=== PATIENT | male | born 1965 | race Caucasian/White ===

== ENCOUNTER 2018-08-24 23:12 | Observation (INO) ==
--- NOTE | 2018-08-24 23:27 | Emergency Department Note ---
Disposition Clinical Impression: Pre-syncope, Bradycardia Disposition: Admitted As Inpatient Time of Disposition: 00:52 General Adult HPI - General Stated complaint: Cardiac issues Time Seen by Provider: 08/24/18 23:22 Source: patient, EMS Mode of arrival: EMS Limitations: no limitations Nursing Notes Reviewed: Yes Vital Signs Reviewed: Yes - History of Present Illness HPI Narrative: 53 yo male with past medical history of diabetes and coronary artery disease with CABG performed [address] Simons presents to the emergency [facility] with a complaint of lightheadedness when he stands and moves around. Patient states that this has been going on since he woke up this morning. He denies any chest pain, shortness of breath, abdominal pain. He states when he first noticed it this morning he did get nauseous and sweaty but did not throw up. He states he had similar symptoms to this when he had his first heart attack many years ago but this episode was not as severe as the first one he has had. He has no symptoms while at rest. His legs have remained swollen since surgery 2 weeks ago and he has not been taking any diuretics or anything else to help decrease the leg swelling. He denies a history of COPD but states he was getting breathing treatments every 4 hours while in the hospital supposed be discharged with inhalers but was not. He states he has been compliant with his medication status post bypass. He is not started cardiac rehabilitation yet. Per EMS the patient's blood sugar was 180. His blood pressures were positive for orthostatic hypotension. His heart rate was borderline slow for EMS in the low 60s and high 50s. - Related Data Home Medications Medication Instructions Recorded Confirmed Aspirin [Lo-Dose Aspirin EC] 81 mg PO DAILY 07/31/18 07/31/18 Atorvastatin Calcium [Lipitor] 80 mg PO DAILY 07/31/18 07/31/18 Carvedilol 3.125 mg PO BID 07/31/18 07/31/18 Cetirizine HCl [24Hour Allergy] 10 mg PO DAILY 07/31/18 07/31/18 Duloxetine HCl [Cymbalta] 60 mg PO DAILY 07/31/18 07/31/18 Famotidine [Pepcid] 40 mg PO DAILY 07/31/18 07/31/18 Metformin HCl [Fortamet] 1,000 mg PO BID 07/31/18 07/31/18 Pioglitazone [Actos] 15 mg PO DAILY 07/31/18 07/31/18 Suboxone 8 mg-2 mg Sl Film 8.2 mg PO BID 07/31/18 07/31/18 Previous Rx's Medication Instructions Recorded Amiodarone [Cordarone] 200 mg PO DAILY tablet 08/10/18 Allergies Allergy/AdvReac Type Severity Reaction Status Date / Time No Known Allergies Allergy Verified 07/31/18 19:19 All systems ED: reviewed and negative except as stated. Review of Systems: As Per HPI Constitutional: Denies: fever, chills, weakness Cardiovascular: Denies: chest pain, palpitations, dyspnea on exertion, edema Respiratory: Denies: cough, dyspnea, wheezes, sputum production Gastrointestinal: Denies: abdominal pain, nausea, vomiting Musculoskeletal: Denies: back pain, neck pain Integumentary: Denies: rash Neurological: Reports: other (lightheadedness/presyncope with exertion). Denies: headache Endocrine: Denies: fatigue Past Medical History - Past Medical History Attestation: Yes The following information was validated with the patient. Source: patient Medical history: Reports: diabetes, hyperlipidemia, hypertension, myocardial infarction Surgical history: Reports: no surgical history, other Psychiatric history: Reports: no psych history - Social History Smoking Status: Former smoker Smokeless Tobacco Status: No Alcohol use: Reports: occasionally Drug use: Reports: none Physical Exam - General Limitations: no limitations General appearance: alert, in no apparent distress - Head Head exam: atraumatic, normocephalic - Eye Eye exam: Present: normal appearance, EOMI - ENT ENT exam: normal exam, mucous membranes moist - Neck Neck exam: Present: normal inspection. Absent: tenderness, lymphadenopathy - Chest Chest inspection: Present: normal inspection. Absent: tenderness, rash - Respiratory Respiratory exam: Present: normal lung sounds bilaterally. Absent: wheezes - Cardiovascular Cardiovascular exam: Present: normal rhythm, bradycardia - Abdominal Exam Abdominal exam: Present: soft, Non-Tender. Absent: distention, guarding, rebound, rigidity - Extremities Exam Extremities exam: Present: pedal edema (1+ pitting edema to bilateral lower extermities without tenderness). Absent: tenderness - Neurological Exam Neurological exam: Present: alert, oriented X3 - Psychiatric Psychiatric exam: Present: normal affect, normal mood - Skin Skin exam: Present: warm, dry, intact Course Vital Signs Temperature 98.1 F 08/24/18 23:39 Pulse Rate 47 08/24/18 23:39 Respiratory Rate 13 08/24/18 23:39 Blood Pressure 97/59 08/24/18 23:39 O2 Sat by Pulse Oximetry 95 08/24/18 23:39 Temperature 98.1 F 08/24/18 23:39 Pulse Rate 47 08/24/18 23:39 Respiratory Rate 13 08/24/18 23:39 Blood Pressure 97/59 08/24/18 23:39 O2 Sat by Pulse Oximetry 95 08/24/18 23:39 Oxygen Delivery Oxygen Delivery Room Air Medical Decision Making - MDM Narrative Medical decision making narrative: Patient presents with dizziness/presyncope with exertion that started this morning. Patient will undergo a cardiac evaluation with EKG, troponin, BNP, basic labs, 2 view chest x-ray. Patient will also receive a liter of fluids. 0033 - patient's lab work is at his baseline. Magnesium was slightly low at 1.5 and we will replace this. EKG does not demonstrate any acute abnormalities. Chest x-ray shows right-sided pleural effusion without any evidence of acute fluid overload or pneumonia. Patient is still feeling lightheaded with exertion and is bradycardic. We will admit the patient for further management of his presyncope and reevaluation by his cardiothoracic surgeon. 0050 - patient has been accepted by the hospitalist at this time. Patient's blood pressures improved to 135/70. His heart rate bounces between 45 and 80 bpm. Cardiothoracic surgery will be consulted in the morning. - Medical Records Medical records reviewed: Yes I reviewed the patient's medical records. - Lab Data Lab results reviewed: Yes I reviewed the patient's lab results. Result diagrams: 08/24/18 23:40 08/24/18 23:40 Lab Results 08/24/18 08/24/18 08/24/18 Range/Units 23:40 23:40 23:40 WBC 5.7 (4.3-11.1) K/mcL RBC 3.52 L (4.19-5.50) M/mcL Hgb 9.2 L (12.9-16.9) g/dL Hct 29.8 L (37.5-50.1) % MCV 84.7 (83.0-100.0) fL MCH 26.1 L (28.0-33.3) pg MCHC 30.9 L (31.6-35.5) g/dL RDW 13.8 (11.5-14.5) % Plt Count 292 (140-400) K/mcL MPV 9.1 L (9.4-12.4) fL Immature Gran % 0.4 (0-4) % Seg Neutrophils % 51.0 % Lymphocytes % 33.6 % Monocytes % 11.2 % Eosinophils % 3.3 % Basophils % 0.5 % Neutrophils # 2.9 (1.6-8.9) K/mcL Lymphocytes # 1.9 (0.6-4.6) K/mcL Monocytes # 0.6 (0.0-1.3) K/mcL Eosinophils # 0.2 (0.0-0.6) K/mcL Basophils # 0.0 (0.0-0.2) K/mcL Sodium 136 (136-145) mEq/L Potassium 4.9 (3.5-5.1) mEq/L Chloride 101 (98-107) mEq/L Carbon Dioxide 26 (23-29) mEq/L BUN 29 H (6-20) mg/dL Creatinine 1.33 H (0.70-1.30) mg/dL Est GFR ( Amer) > 60 (> 60) Est GFR (Non-Af Amer) 56 L (> 60) BUN/Creatinine Ratio 22 (6-26) Glucose 222 H (70-105) mg/dL Calculated Osmolality 295 (280-300) Calcium 8.9 (8.6-10.3) mg/dL Magnesium 1.5 L (1.6-2.6) mg/dL Troponin I 0.03 (< 0.04) ng/mL B-Natriuretic Peptide 503 H (Less than 100) pg/mL - Radiology Data Radiology results reviewed: Yes I reviewed the patient's radiology results. - EKG Data EKG #1 EKG attestation: Yes I reviewed and interpreted this EKG. EKG results narrative: EKG obtained at 23:21 on 08/24/2018 Heart rate 47 bpm, MN interval 96, QRS duration 104, QTC 435, QTc [address] segment elevations or depressions. U waves are visible in lead V2, 3, aVF. No other notable abnormalities and EKG and. Previous EKG obtained 08/08/2018 shows atrial flutter. Attestation Statement - Attestation Attestation: I have seen this patient with the resident physician, I have personally evaluated this patient. I had reviewed the chart and document dictation by the resident physician and aM in agreement with the information documented by the resident physician. Please see documentation by the resident physician for complete chart including past medical history, family medical history, review of systems, current history and physical and laboratory and imaging studies. I was present for all procedures, provided direct supervision for all procedures, was present for the entirety of all procedures and provided direct guidance during the procedures. Please see documentation by the resident physician for any procedures performed. I have reviewed all interpretations of EKGs, and reviewed all EKGs performed on patient's as well. I have also reviewed reports of imaging as provided by radiology. Patient presented emergency Department chief complaint of lightheadedness especially with standing. He was recently discharged from hospital after bypass. Upon presentation initial EKG was a sinus bradycardia, no evidence of block, no evidence of acute ST elevation or ST depression, there did appear to be potentially some U waves. No evidence of prolonged QT no evidence of MN prolongation no evidence of QRS widening no significant acute abnormality apart from sinus bradycardia. The patient is on carvedilol. He reports taking all medications as directed. Chest x-ray showed some cardiomegaly left lower lobe pleural effusion, no significant change from recent. Basic laboratory studies including CBC basic metabolic profile within acceptable limits, troponin negative, magnesium slightly low at 1.5 which is supplemented here in the ER. A BNP of 500. Patient had initial blood pressure of 90s systolic, rapidly improved with a liter fluids 230. Patient during his stay had rate changes noted fairly frequently, ranging between 45 and 81, multiple EKGs were obtained, which demonstrated just sinus rhythm, sometimes with a rate in the 80s sometimes with a rate in the 40s, no changes in symptoms at this time and the patient states that he felt significant better after 1 L of IV fluids and had no symptoms at rest, with these fluctuations in heart rate, this could be credit resolution representative of sick sinus syndrome versus sinus arrhythmia and sinus bradycardia, but no evidence of block and no evidence of dropped beats. Patient was admitted to the hospital for further evaluation and management.
[2018-08-24] MEDS ORDERED: 0.9 % Sodium Chloride 1,000 ML IVC ONE (23:44)
[2018-08-24 23:59] LABS: Basophils % 0.5 %; Eosinophils # 0.2 K/mcL (0.0-0.6); Eosinophils % 3.3 %; Hematocrit 29.8 % (37.5-50.1); Hemoglobin 9.2 g/dL (12.9-16.9); Immature Granulocytes % 0.4 % (0-4); Lymphocytes # 1.9 K/mcL (0.6-4.6); Lymphocytes % 33.6 %; Mean Corpuscular HGB Conc 30.9 g/dL (31.6-35.5); Mean Corpuscular Hemoglobin 26.1 pg (28.0-33.3); Mean Corpuscular Volume 84.7 fL (83.0-100.0); Mean Platelet Volume 9.1 fL (9.4-12.4); Monocytes # 0.6 K/mcL (0.0-1.3); Monocytes % 11.2 %; Neutrophils # 2.9 K/mcL (1.6-8.9); Platelet Count 292 K/mcL (140-400); Red Blood Count 3.52 M/mcL (4.19-5.50); Red Cell Distribution Width 13.8 % (11.5-14.5); White Blood Count 5.7 K/mcL (4.3-11.1)
[2018-08-25 00:15] LABS: BUN/Creatinine Ratio 22 (6-26); Blood Urea Nitrogen 29 mg/dL (6-20); Calcium 8.9 mg/dL (8.6-10.3); Carbon Dioxide 26 mEq/L (23-29); Chloride 101 mEq/L (98-107); Glucose 222 mg/dL (70-105); Magnesium 1.5 mg/dL (1.6-2.6); Osmolality,Calculated 295 (280-300); Potassium 4.9 mEq/L (3.5-5.1); Sodium 136 mEq/L (136-145); Troponin I 0.03 ng/mL (< 0.04); eGFR For African Americans > 60 (> 60); eGFR For Non-African Americans 56 (> 60)
--- NOTE | 2018-08-25 01:46 | Internal Med History&Physical ---
<Walter Mendes A - Last Filed: 08/25/18 06:23> Date of Encounter: 08/25/18 Time of Encounter: 01:46 Internal Medicine - H&P: HPI Chief complaint: Lightheadedness Admitted From: Emergency Dept History of present illness: Mr. Bettencourt is a 53 year old male with past medical history of coronary artery disease, and status post CABG from 3 weeks ago. He initially presented to the ER complaining of lightheadedness when standing and moving around. Patient states this is been going on for approximately one day. Denied any chest pain, shortness of breath, abdominal pain, nausea, vomiting, fever, numbness, tingling, or headaches. Reports he has been at his baseline shortness of breath, with no change in sputum production or sputum character. He reports his lower extremity edema remains grossly unchanged since discharge from this facility 2 weeks ago. Workup in the ED revealed sinus bradycardia with heart rate in the 40s. Chest x-ray showed pulmonary vascular congestion with small left pleural effusion. Initial troponin negative. BNP slightly elevated at 503. Magnesium was found to be slightly decreased at 1.5, but was repleted with 2 g IV. Patient was also given 1 L IV fluids. During the encounter with this provider patient reported he feels better after receiving the IV fluids and IV magnesium. Patient's and 2 daughters are bedside. Patient's does report the patient has had one more episode of lightheadedness since arriving to the floor, however this is resolved at this time. Patient continues to deny any chest pain or shortness of breath. The patient and his report compliance with home medications. Patient reports he has had adequate by mouth intake, with no difficulties urinating or d ifficulties with bowel movements. Patient reports he does wish to be a full code at this time, and is amenable to CVC placement should his hypotension persist. Home medications include: Aspirin 81 mg daily NovoLog injectable Pioglitazone 15 mg daily Amiodarone 200 mg daily Atorvastatin 80 mg daily Carvedilol 3.125 mg twice a day Duloxetine 60 mg daily Famotidine 40 mg daily Metformin 1000 mg twice a day As needed DuoNeb's Past Med Surg Social Fam HX - Past Medical History Medical history: coronary artery disease, diabetes, hyperlipidemia, hypertension, myocardial infarction Psychiatric history: no psych history - Past Surgical History Surgical History: no surgical history, other Additional surgical history: cardiac stent x1 (2010). CABG on 08/09 - Social History Smoking Status: Former smoker Smokeless Tobacco Status: No Alcohol use: occasionally Drug use: none Internal Medicine - H&P: Meds No Known Home Drugs 08/25/18 [History] Allergy/AdvReac Type Severity Reaction Status Date / Time No Known Allergies Allergy Verified 07/31/18 19:19 All Systems PM: A 10-system review of systems was performed and is negative for pertinent findings except as documented above in the HPI. - Constitutional Constitutional: no chills, no fever(s) - EENT Eyes: no blurry vision, no change in vision - Cardiovascular Cardiovascular ROS IM: edema (Baseline), lightheadedness, no chest pain, no diaphoresis, no dyspnea, no orthopnea, no palpitations, no syncope - Respiratory Respiratory: no cough, no dyspnea, no excessive phlegm production, no change in phlegm color - Gastrointestinal Gastrointestinal: no abdominal pain, no change in bowel habits - Genitourinary Genitourinary ROS male: no difficulty urinating, no hematuria - Integumentary Integumentary IM: no erythema, no new lesions, no rash, no unusual bruising - Hematologic/Lymphatic Hematologic/Lymphatic: no easy bleeding, no easy bruising - Constitutional Vitals: Temp Pulse Resp BP Pulse Ox 98.3 F 44 15 80/48 92 08/25/18 01:44 08/25/18 01:44 08/25/18 01:44 08/25/18 01:44 08/25/18 01:44 General appearance: Present: A&O X 3, pleasant, no acute distress, answers questions appropriately Exam: Constitutional: Well-nourished, well-developed male in no acute distress Head: Normocephalic, atraumatic Eyes: PERRL, EOMI, conjunctiva pink, sclera anicteric Neck: Supple, trachea midline, no tenderness Lungs: Clear to auscultation bilaterally. Nonlabored breathing. No wheezes, rales, or rhonchi noted. Cardiac: RRR. +s1 +S2 No murmurs, clicks, or rubs noted. GI: Abdomen soft, nontender, nondistended. Normoactive bowel sounds Extremities: Warm, radial pulses palpable and symmetrical. No cyanosis, pedal edema, or calf tenderness. Neuro: Alert and oriented 3. No focal deficits. Normal speech. Skin: Warm, dry, and intact. Midline incision of the chest clean and dry with some residual surgical adhesive, and no erythema Internal Med - H&P Results - Labs CBC & Chem 7: 08/24/18 23:40 08/24/18 23:40 Labs: Short CBC 08/24/18 Range/Units 23:40 WBC 5.7 (4.3-11.1) K/mcL Hgb 9.2 L (12.9-16.9) g/dL Hct 29.8 L (37.5-50.1) % Plt Count 292 (140-400) K/mcL Neutrophils # 2.9 (1.6-8.9) K/mcL BMP 08/24/18 23:40 Sodium 136 Potassium 4.9 Chloride 101 Carbon Dioxide 26 BUN 29 H Creatinine 1.33 H Glucose 222 H Calcium 8.9 Cardiac Enzymes 08/24/18 Range/Units 23:40 Troponin I 0.03 (< 0.04) ng/mL - Impressions ITS Impressions Chest X-Ray 08/25/18 00:00 IMPRESSION: Pulmonary vascular congestion with a small left pleural effusion. Pulmonary edema would be primarily considered. Correlate with any clinical evidence of superimposed pneumonia. D/ / Jose Eduardo Calix MD / Jose Eduardo Calix MD Interpreting Provider: Jose Eduardo Calix MD - Assessment and Plan (1) Bradycardia Current Visit: Yes Status: Acute Assessment and plan: Patient noted to be in sinus bradycardia on EKGs. Received 1 L IV fluids and 2 g magnesium IV in the ER Initial troponin was negative. We will continue to trend. We will continue to monitor magnesium and replace as needed. We will hold further hydrate the patient with 1 L IV fluids We will hold any AV jacobo blockers at this time. We will consult cardiology and cardiothoracic surgery as patient is 3 weeks status post CABG. Continue to monitor heart rate. We will consider dopamine if hypotension persists. (2) Hypotension Current Visit: Yes Status: Acute Assessment and plan: With the systolics in the 80s. Patient reports he is feeling better after IV fluids and IV magnesium replacement. Plan as above Qualifiers: Hypotension type: unspecified hypotension type Qualified Code(s): I95.9 - Hypotension, unspecified (3) S/P CABG (coronary artery bypass graft) Current Visit: Yes Status: Acute Assessment and plan: Patient underwent CABG on 08/03/[address] Simons (4) Type 2 diabetes mellitus Current Visit: Yes Status: Chronic Assessment and plan: Hold home anti-hyperglycemic agents We will place on high-dose sliding scale insulin at this time Qualifiers: Diabetes mellitus rodent exterminator insulin use: without longterm use Diabetes mellitus complication status: with hyperglycemia Qualified Code(s): E11.65 - Type 2 diabetes mellitus with hyperglycemia (5) CAD (coronary artery disease) Current Visit: Yes Status: Chronic Assessment and plan: Holding home beta charity with bradycardia and hypotension Continue home atorvastatin 80 mg daily Qualifiers: Coronary Disease-Associated Artery/Lesion type: [place] artery [place] vs. transplanted heart: [place] heart Associated angina: angina presence unspecified Qualified Code(s): I25.10 - Atherosclerotic heart disease of [place] coronary artery without angina pectoris (6) DVT prophylaxis Current Visit: Yes Status: Acute Assessment and plan: EPCDs - Time Spent With Patient Total time spent is greater than 50% in coordination of care (as documented) at patient's floor/unit and/or counseling patient: <Jethro Maldonado - Last Filed: 08/25/18 06:54> Date of Encounter: 08/25/18 Time of Encounter: 05:45 - Constitutional Constitutional: fatigue, weakness - Cardiovascular Cardiovascular ROS IM: lightheadedness, no chest pain, no diaphoresis, no dyspnea, no palpitations, no syncope - Respiratory Respiratory: no cough, no dyspnea, no chest congestion - Genitourinary Genitourinary ROS male: no dysuria, no flank pain - Integumentary Integumentary IM: no rash, no jaundice - Neurological Neurological ROS: dizziness, no focal weakness, no frequent falls, no headache(s) - Psychiatric Psychiatric: no anxiety, no depression - Endocrine Endocrine IM: no polydipsia, no polyuria - Allergic/Immunologic Allergic/Immunologic: no GI upset with certain foods - Constitutional Vitals: Temp Pulse Resp BP Pulse Ox 98.6 F 66 17 109/67 91 08/25/18 06:39 08/25/18 06:39 08/25/18 06:39 08/25/18 06:39 08/25/18 06:39 General appearance: Present: A&O X 3, no acute distress Exam: symptomatic upon standing - Head Head exam: Present: normal inspection - Eye Eye exam: Present: EOMI, PERRL. Absent: scleral icterus Pupils: Present: normal accommodation - ENT ENT exam: Present: mucous membranes dry, normal oropharynx - Neck Neck exam general surgery: Present: full ROM, supple, trachea midline. Absent: tenderness, nuchal rigidity, thyromegaly - Respiratory Respiratory exam: Present: CTAB. Absent: chest wall tenderness, rales, respiratory distress, rhonchi, wheezes - Cardiovascular Cardiovascular exam: Present: distant heart sounds, irregular rhythm, +S1, +S2, systolic murmur. Absent: diastolic murmur Additional comments: sternal wound clean, dry, and without sign of infection - GI/Abdominal GI/Abdominal exam: Present: normal bowel sounds, soft. Absent: guarding, hepatomegaly, mass, rebound, splenomegaly, tenderness - Extremities Exam Extremities exam: Present: full ROM, normal capillary refill, pedal edema (1+), warm, radial pulses palpable and symmetrical. Absent: calf tenderness, joint swelling, tenderness - Back Exam Back exam: Absent: CVA tenderness (L), CVA tenderness (R) - Neurological Exam Neurological exam: Present: alert, CN II-XII intact, oriented X3, no focal deficits - Psychiatric Psychiatric exam: Present: normal affect, normal mood - Skin Skin exam: Present: dry, intact, warm Internal Med - H&P Results - Labs CBC & Chem 7: 08/24/18 23:40 08/24/18 23:40 Labs: Short CBC 08/24/18 Range/Units 23:40 WBC 5.7 (4.3-11.1) K/mcL Hgb 9.2 L (12.9-16.9) g/dL Hct 29.8 L (37.5-50.1) % Plt Count 292 (140-400) K/mcL Neutrophils # 2.9 (1.6-8.9) K/mcL BMP 08/24/18 23:40 Sodium 136 Potassium 4.9 Chloride 101 Carbon Dioxide 26 BUN 29 H Creatinine 1.33 H Glucose 222 H Calcium 8.9 Cardiac Enzymes 08/24/18 Range/Units 23:40 Troponin I 0.03 (< 0.04) ng/mL - Impressions ITS Impressions Chest X-Ray 08/25/18 00:00 IMPRESSION: Pulmonary vascular congestion with a small left pleural effusion. Pulmonary edema would be primarily considered. Correlate with any clinical evidence of superimposed pneumonia. D/ / Jose Eduardo Calix MD / Jose Eduardo Calix MD Interpreting Provider: Jose Eduardo Calix MD - Assessment and Plan (1) CAD (coronary artery disease) Current Visit: Yes Status: Chronic Qualifiers: Coronary Disease-Associated Artery/Lesion type: [place] artery [place] vs. transplanted heart: [place] heart Associated angina: angina presence unsp ecified Qualified Code(s): I25.10 - Atherosclerotic heart disease of [place] coronary artery without angina pectoris (2) Type 2 diabetes mellitus Current Visit: Yes Status: Chronic Qualifiers: Diabetes mellitus rodent exterminator insulin use: without rodent exterminator use Diabetes mellitus complication status: with hyperglycemia Qualified Code(s): E11.65 - Type 2 diabetes mellitus with hyperglycemia (3) Bradycardia Current Visit: Yes Status: Acute (4) S/P CABG (coronary artery bypass graft) Current Visit: Yes Status: Acute (5) Hypotension Current Visit: Yes Status: Acute Qualifiers: Hypotension type: unspecified hypotension type Qualified Code(s): I95.9 - Hypotension, unspecified (6) DVT prophylaxis Current Visit: Yes Status: Acute - Time Spent With Patient Total time spent is greater than 50% in coordination of care (as documented) at patient's floor/unit and/or counseling patient: - Attending Attestation I discussed the patient [place], past medical history, review of systems, lab data, EKG findings, and imaging data with Dr. Mendes. I then saw and examined patient independently as well. Patient remains bradycardic with heart rate in the 40s. I reviewed his EKG personally and it appears to be sinus rhythm, albeit bradycardic. Blood pressure has been borderline low. He is asymptomatic while lying in bed. However, if he sits up or stands, he becomes lightheaded and dizzy. Thus far, he has not required any pressors or supportive hemodynamics measures. We will hold his beta charity and AV jacobo suppressive agents. Car diology and CT surgery have been consulted. If he fails to improve by holding his beta charity, he may warrant permanent pacemaker. If he becomes hemodynamically unstable, we will contact cardiology and request temporary venous pacemaker implantation. However, for the time being, he has remained relatively stable. He denies any fevers, chills, shortness of breath, vomiting, or diarrhea. He has had a mild nonproductive cough. His wound is healing well and he has minimal sternal pain compared to initial postoperative course. Other than my comments above and documented exam findings, I agree with Dr. Mendes's assessment and plan.
[2018-08-25] MEDS ORDERED: Naloxone 0.4 MG/ML INJ IVP PRN (02:54)
[2018-08-25] MEDS ORDERED: 0.9 % Sodium Chloride 1,000 ML IVC ONE (03:59)
[2018-08-25] MEDS ORDERED: D5% in Water 1,000 ML IVC PRN (04:15)
[2018-08-25] MEDS ORDERED: *HR* Dextrose 50 % in Water (Syg) 50 ML SYRINGE IVP PRN (04:15)
[2018-08-25] MEDS ORDERED: Dextrose Gel 15 GM/37.5 ML TUBE PO PRN ×2 (04:15)
[2018-08-25] MEDS: Insulin LISPRO 300 UNITS/3 ML VIAL SQ SCH ×3 (05:31→17:38)
[2018-08-25 06:51] LABS: Basophils % 0.4 %; Eosinophils # 0.2 K/mcL (0.0-0.6); Eosinophils % 3.3 %; Hematocrit 26.5 % (37.5-50.1); Immature Granulocytes % 0.4 % (0-4); Lymphocytes # 1.7 K/mcL (0.6-4.6); Lymphocytes % 35.8 %; Mean Corpuscular HGB Conc 30.2 g/dL (31.6-35.5); Mean Corpuscular Hemoglobin 25.3 pg (28.0-33.3); Mean Corpuscular Volume 83.9 fL (83.0-100.0); Mean Platelet Volume 9.5 fL (9.4-12.4); Monocytes # 0.5 K/mcL (0.0-1.3); Neutrophils # 2.4 K/mcL (1.6-8.9); Platelet Count 247 K/mcL (140-400); Red Blood Count 3.16 M/mcL (4.19-5.50); Red Cell Distribution Width 13.8 % (11.5-14.5); Segmented Neutrophils % 49.1 %; White Blood Count 4.8 K/mcL (4.3-11.1)
[2018-08-25 06:55] LABS: INR 1.2; Prothrombin Time 13.3 Seconds (9.4-12.1)
[2018-08-25] MEDS: Famotidine 20 MG TABLET PO SCH (08:03)
[2018-08-25 08:27] LABS: BUN/Creatinine Ratio 23 (6-26); Blood Urea Nitrogen 29 mg/dL (6-20); Calcium 8.3 mg/dL (8.6-10.3); Carbon Dioxide 24 mEq/L (23-29); Chloride 103 mEq/L (98-107); Glucose 188 mg/dL (70-105); Magnesium 1.7 mg/dL (1.6-2.6); Osmolality,Calculated 293 (280-300); Phosphorous 3.7 mg/dL (2.7-4.5); Potassium 4.9 mEq/L (3.5-5.1); Sodium 136 mEq/L (136-145); eGFR For African Americans > 60 (> 60); eGFR For Non-African Americans 59 (> 60)
--- NOTE | 2018-08-25 09:00 | Cardiology Consult Note ---
<Nadine South N - Last Filed: 08/25/18 13:12> Date of Encounter: 08/25/18 Time of Encounter: 08:57 Assessment and Plan (1) Pre-syncope Current Visit: Yes Status: Acute Unclear etiology. Patient was notably hypotensive upon arrival to the ED, which did improve after administration of IV fluids. HR has fluctuated throughout the day, ranging from the 40s to the 80s, which may be contributing to his symptoms as well. Patient has had two TTE performed since his CABG; however, clear images were not able to be obtained, even with use of Definity contrast. Recommend obtaining CRESCENCIO to evaluate post-operative cardiac functionality. NPO diet order placed to begin at midnight. Hold antihypertensive and AV jacobo blocking agents due to hypotension and bradycardia. Continue telemetry monitoring. Patient will need a one-month event monitor placed prior to hospital discharge. (2) CAD (coronary artery disease) Current Visit: Yes Status: Chronic History of CAD s/p CABG x3 on 08/03/2018. Continue aspirin and statin therapy; hold beta charity secondary to hypotension/bradycardia. Qualifiers: Coronary Disease-Associated Artery/Lesion type: [place] artery [place] vs. transplanted heart: [place] heart Associated angina: angina presence unspecified Qualified Code(s): I25.10 - Atherosclerotic heart disease of [place] coronary artery without angina pectoris (3) Hypotension Current Visit: Yes Status: Acute Improving. Continue to hold antihypertensive agents and AV jacobo blocking agents. Qualifiers: Hypotension type: unspecified hypotension type Qualified Code(s): I95.9 - Hypotension, unspecified Discussion w patient/family: The assessment and plan as outlined above was discussed with the patient and/or family members who expressed understanding and agreement. All questions were answered. Thank you for involving us in the care of your patient. Please call with any questions. History of Present Illness Consult date: 08/25/18 Requesting physician: Walter Mendes Consult reason: Bradycardia and hypotension, 3 weeks s/p CABG Chief complaint: Dizziness History of present illness: Mr. Bettencourt is a 53 year old male with a history of DM, HTN, HLD, AK, and CAD s/p CABG x3 on 08/03/2018. He presented to the ED last night for evaluation of dizziness and lightheadedness that started yesterday morning. He states that this occurs when he stands up. He describes the sensation as "the room is spinning", but denies any black spots or changes in his vision. In the ED, patient was noted to be hypotensive and bradycardic, with initial HR in the 40s. He was administered 1L IV fluids, which did improve his BP. Patient reports simiilar symptoms in the past, prior to his CABG, which were associated with hypotension. He was admitted to the hospitalist service for ongoing monitoring and further evaluation. On evaluation this morning, patient reports no dizziness or discomfort at rest. He denies any chest pain, pressure, or discomfort, other than normal post-o perative soreness. He reports bilateral lower extremity edema that is chronic and unchanged for the last several weeks. He denies any palpitations, changes in vision, headaches, shortness of breath, or orthopnea. Prior cardiac testing: * CABG 08/03/2018: Coronary artery I passed grafting 3 with the left internal mammary artery to the LAD and saphenous vein grafts to the posterior descending branch of the right coronary artery and obtuse marginal branch of the circumflex coronary artery. * C 08/01/2018: There is severe three vessel coronary artery disease involving left main. There is a mid distal LAD lesion. The left ventricle has contractility EF 50%. 50% stenosis in distal LMCA. 60% stenosis in proximal LAD. 70-80% stenosis in two separate areas of mid-LAD. 50% stenosis in proximal circumflex. 70% stenosis in 1st marginal. 70-80% stenosis in mid-RCA. * Echocardiogram 07/31/2018: LVEF 60%. Mild left ventricular diastolic dysfunction. Right ventricular structure is not well visualized. Grossly, RV systolic function is normal but is not well visualized in all windows. Mild tricuspid regurgitation. No pulmonary hypertension. Past Med Surg Social Fam HX - Past Medical History Medical history: coronary artery disease, diabetes, hyperlipidemia, hypertension, myocardial infarction Psychiatric history: no psych history - Past Surgical History Surgical History: no surgical history, other Additional surgical history: cardiac stent x1 (2010). CABG on 08/09 - Social History Smoking Status: Former smoker Smokeless Tobacco Status: No Alcohol use: occasionally Drug use: none Medications and Allergies Amiodarone [Cordarone] 200 mg PO DAILY 08/25/18 [History] Aspirin [Lo-Dose Aspirin EC] 81 mg PO DAILY 08/25/18 [History] Atorvastatin Calcium 80 mg PO DAILY 08/25/18 [History] Carvedilol 3.125 mg PO BID 08/25/18 [History] Cetirizine HCl [24Hour Allergy] 10 mg PO DAILY 08/25/18 [History] Duloxetine HCl [Cymbalta] 60 mg PO DAILY 08/25/18 [History] Famotidine [Pepcid] 40 mg PO DAILY 08/25/18 [History] Furosemide [Lasix] 10 mg PO DAILY 08/25/18 [History] Insulin ASPART [NovoLOG] 0 unit SQ ACHS 08/25/18 [History] Insulin Glargine,Hum.rec.anlog [Basaglar Kwikpen U-100] 35 unit SQ HS 08/25/18 [History] Ipratropium/Albuterol Neb [Duoneb] 3 ml IH Q4HR 08/25/18 [History] Metformin HCl [Glucophage] 1,000 mg PO BID 08/25/18 [History] Pioglitazone HCl [Actos] 15 mg PO DAILY 08/25/18 [History] Allergy/AdvReac Type Severity Reaction Status Date / Time No Known Allergies Allergy Verified 08/25/18 14:30 All Systems Review: The remainder of the systems were reviewed and are negative - Constitutional Constitutional: no fatigue, no headache(s) - Cardiovascular Cardiovascular: leg edema, lightheadedness, no chest pain at rest, no chest pain with exertion, no dyspnea at rest, no dyspnea on exertion, no irregular heart rhythm, no radiating jaw, neck or arm pain, no orthopnea, no palpitations, no syncope - Gastrointestinal Gastrointestinal: nausea - Neurological Neurological: dizziness Physical Examination Vital Signs, Last 4 Hours Temp Pulse Resp BP Pulse Ox 08/25/18 06:39 98.6 F 66 17 109/67 91 08/25/18 06:01 88/51 General: Conversant, No Apparent Distress HEENT: Atraumatic, Normocephaly, Mucus Membranes Moist Neck: No JVD, Normal carotid pulses Cardiac: Reg Rate and Rhythm, Normal S1 and S2, No Murmur, Other (well-healing surgical scar) Lungs: Normal Breath Sounds, No Wheeze, Rales, Rhonchi Neuro: Alert and responsive, No focal deficits noted Abdomen: Soft, Non-Tender Skin: No rashes noted on visualized skin Musculoskeletal: No Chest Wall Tenderness Extremities: No Clubbing, No Cyanosis, Normal Pulses, Other (1+ bilateral lower extremity edema) Results 08/25/18 05:54 08/25/18 05:54 Lab Results 08/24/18 08/24/18 08/24/18 23:40 23:40 23:40 WBC 5.7 Hgb 9.2 L Hct 29.8 L Plt Count 292 INR Sodium 136 Potassium 4.9 Chloride 101 Carbon Dioxide 26 BUN 29 H Creatinine 1.33 H Glucose 222 H Calcium 8.9 Magnesium 1.5 L Troponin I 0.03 B-Natriuretic Peptide 503 H 08/25/18 08/25/18 08/25/18 05:54 05:54 05:54 WBC 4.8 Hgb 8.0 L Hct 26.5 L Plt Count 247 INR 1.2 Sodium 136 Potassium 4.9 Chloride 103 Carbon Dioxide 24 BUN 29 H Creatinine 1.27 Glucose 188 H Calcium 8.3 L Magnesium 1.7 Troponin I B-Natriuretic Peptide 08/25/18 05:54 WBC Hgb Hct Plt Count INR Sodium Potassium Chloride Carbon Dioxide BUN Creatinine Glucose Calcium Magnesium Troponin I 0.03 B-Natriuretic Peptide Consult Discharge Plan - Plan Referrals: Jv Finn DO [Primary Care Provider] - <Cale Rojas - Last Filed: 08/25/18 22:44> Date of Encounter: 08/25/18 - Attending Attestation I have personally performed a face to face evaluation on this patient. I have reviewed and agree with the documented findings and care plan as documented by the resident. History and Exam by me shows: 53 y/o M with history of CAD with recent CABG admitted for bradycardia and hypotension. He reports that he feels better today since AV jacobo blocking agents and antihypertensives were held AAOX3 in NAD at the bedside Hemodynamically stable Sternal scar well-healed .Cardiopulmonary exam revealed S1, S2, no murmur; clear lungs Rhythm reviewed - sinus rhythm, no acute ST T changes Impression/plan: We will obtain CRESCENCIO to evaluate LVEF definitively as previous attempts at transthoracic echocardiogram have yielded poor images. Ascertaining LV function and valvular function will guide titration of B charity and ACEI. Continue aspirin and statin Patient had A. fib postoperatively. We will obtain a 4 week event monitor upon discharge to document presence or otherwise of A. fib,/tachybradycardia syndrome. Thanks, Cale Rojas MD [facility] Assessment and Plan Discussion w patient/family: The assessment and plan as outlined above was discussed with the patient and/or family members who expressed understanding and agreement. All questions were answered. Thank you for involving us in the care of your patient. Please call with any questions. History of Present Illness History of present illness: Mr. Bettencourt is a 53 year old male All Systems Review: The remainder of the systems were reviewed and are negative Physical Examination Vital Signs, Last 4 Hours Temp Pulse Resp BP Pulse Ox 08/25/18 20:05 16 96 08/25/18 18:40 98.2 F 88 18 147/91 95 Results 08/25/18 05:54 08/25/18 05:54 Lab Results 08/24/18 08/24/18 08/24/18 23:40 23:40 23:40 WBC 5.7 Hgb 9.2 L Hct 29.8 L Plt Count 292 INR Sodium 136 Potassium 4.9 Chloride 101 Carbon Dioxide 26 BUN 29 H Creatinine 1.33 H Glucose 222 H Calcium 8.9 Magnesium 1.5 L Troponin I 0.03 B-Natriuretic Peptide 503 H 08/25/18 08/25/18 08/25/18 05:54 05:54 05:54 WBC 4.8 Hgb 8.0 L Hct 26.5 L Plt Count 247 INR 1.2 Sodium 136 Potassium 4.9 Chloride 103 Carbon Dioxide 24 BUN 29 H Creatinine 1.27 Glucose 188 H Calcium 8.3 L Magnesium 1.7 Troponin I B-Natriuretic Peptide 08/25/18 08/25/18 05:54 12:06 WBC Hgb Hct Plt Count INR Sodium Potassium Chloride Carbon Dioxide BUN Creatinine Glucose Calcium Magnesium Troponin I 0.03 0.03 B-Natriuretic Peptide
--- NOTE | 2018-08-25 13:10 | Event Note ---
Date of Encounter: 08/25/18 Time of Encounter: 08:07 Patient was seen and examined at bedside. Denies loss of consciousness, dizziness currently, recent head trauma, chest pain or palpitations. Denies cough, fever, chills or dysuria. No chest pain and incisional pain. Vital signs reviewed Clear to auscultation bilaterally Clean CABG scar without signs of bleeding or infection, bradycardic, S1 and S2 No edema, moving all 4 extremities Alert and oriented 3 no focal deficit Assessment and plan Symptomatic bradycardia CAD Status post CABG continue to hold AV jacobo agents orthostatics negative will send cortisol levels in AM cardiology and CT have been consulted will follow recs
[2018-08-25] MEDS: *HR* Heparin 5,000 UNIT/ML VIAL SQ SCH ×2 (15:43→20:28)
--- NOTE | 2018-08-25 16:22 | Electrocardiograph Report ---
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
[2018-08-25] MEDS: Ipratropium/Albuterol Neb 3 ML IH SCH ×3 (16:26→23:59)
--- NOTE | 2018-08-25 16:31 | Electrocardiograph Report ---
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
[2018-08-25] MEDS ORDERED: Insulin DETEMIR 100 UNIT/ML X5UNITS SQ SCH (21:00)
[2018-08-25] MEDS ORDERED: Acetaminophen 325 MG TABLET PO PRN (22:51)
[2018-08-26] MEDS: Insulin LISPRO 300 UNITS/3 ML VIAL SQ SCH ×3 (01:43→11:18)
[2018-08-26] MEDS: Ipratropium/Albuterol Neb 3 ML IH SCH ×5 (03:43→15:23)
[2018-08-26] MEDS: traMADol 50 MG TABLET PO PRN ×2 (04:58→11:10)
[2018-08-26] MEDS: *HR* Heparin 5,000 UNIT/ML VIAL SQ SCH (06:04)
[2018-08-26 06:08] LABS: Hematocrit 31.3 % (37.5-50.1); Hemoglobin 9.5 g/dL (12.9-16.9); Mean Corpuscular HGB Conc 30.4 g/dL (31.6-35.5); Mean Corpuscular Volume 82.4 fL (83.0-100.0); Mean Platelet Volume 9.1 fL (9.4-12.4); Platelet Count 318 K/mcL (140-400); Red Cell Distribution Width 13.9 % (11.5-14.5)
[2018-08-26 06:26] LABS: BUN/Creatinine Ratio 20 (6-26); Blood Urea Nitrogen 21 mg/dL (6-20); Calcium 8.9 mg/dL (8.6-10.3); Carbon Dioxide 24 mEq/L (23-29); Chloride 101 mEq/L (98-107); Glucose 229 mg/dL (70-105); Osmolality,Calculated 294 (280-300); Potassium 4.1 mEq/L (3.5-5.1); Sodium 137 mEq/L (136-145); eGFR For African Americans > 60 (> 60); eGFR For Non-African Americans > 60 (> 60)
[2018-08-26] MEDS ORDERED: *HR* FentaNYL (PF) 100 MCG/2 ML VIAL IVP PRN (08:03)
[2018-08-26] MEDS ORDERED: Lidocaine Viscous Oral Soln 15 ML SOLUTION MM PRN (08:03)
[2018-08-26] MEDS ORDERED: *HR* Midazolam HCl 5 MG/5 ML VIAL IVP PRN (08:04)
[2018-08-26] MEDS ORDERED: 0.9 % Sodium Chloride 500 ML IVC ONE (08:04)
[2018-08-26] MEDS ORDERED: Loratadine 10 MG TABLET PO SCH (09:00)
[2018-08-26] MEDS ORDERED: NON-FORMULARY MEDICATION 1 EACH EACH (Famotidine [Pepcid] 40 MG) PO SCH (09:00)
[2018-08-26] MEDS ORDERED: Aspirin Enteric Coated 81 MG Tablet PO SCH (09:00)
--- NOTE | 2018-08-26 11:04 | Cardiology Progress Note ---
<Nadine South N - Last Filed: 08/26/18 13:03> Date of Encounter: 08/26/18 Time of Encounter: 10:57 Assessment and Plan (1) ASD (atrial septal defect) Status: Acute CRESCENCIO on 08/26/2018 was significant for a previously unknown large atrial septal defect, likely secundum type with limited cushion rim vs primum type, with left to right shunt at rest and bilateral shunt on saline study. Findings were discussed with the patient and his family, as well as options for closure. Patient voices interest in percutaneous closure, and will be set up to see Dr. Allison in the outpatient clinic for further discussion. (2) Pre-syncope Status: Acute Suspect secondary to hypotension from volume depletion and medication effects vs. intermittent bradycardia. Patient was notably hypotensive upon arrival to the ED, which did improve after administration of IV fluids. Home medications of lasix, carvedilol, and amiodarone were held at the time of admission, and hypotension appears to have resolved at this time. Restart low-dose carvedilol 3.125mg BID. Recommend adequate fluid hydration and PO intake. Stop lasix, as it may contribute to dehydration and worsening of symptoms. (3) Afib Status: Acute Patient noted to have new-onset atrial fibrillation after CABG approximately 3 weeks ago. His home mediation list includes amioodarone 200mg daily. Upon arrival at this facility, patient was noted to be bradycardic, with HR in the 40s. This has improved; however, patient was noted to have frequent HR fluctuations. Recommend placement of 4-week event monitor prior to hospital discharge to evaluate for chronic arrhythmia/tachybradycardia. Continue home medication of amiodarone 200mg daily. Qualifiers: Atrial fibrillation type: unspecified Qualified Code(s): I48.91 - Unspecified atrial fibrillation (4) CAD (coronary artery disease) Status: Chronic History of CAD s/p CABG x3 on 08/03/2018. Continue aspirin and statin therapy. Restart carvedilol 3.125mg BID. Patient is not currently on an ACEI; will readdress during outpatient cardiology followup. Qualifiers: Coronary Disease-Associated Artery/Lesion type: [place] artery [place] vs. transplanted heart: [place] heart Associated angina: angina presence unspecified Qualified Code(s): I25.10 - Atherosclerotic heart disease of [place] coronary artery without angina pectoris (5) Hypertension Status: Acute History of hypertension, with home mediations of carvedilol 3.125mg BID and lasix 10mg daily. Resume carvedilol, with uptitration of medication as needed in the outpatient cardiology clinic. Discontinue lasix due to recent hypotension. Qualifiers: Hypertension type: unspecified Qualified Code(s): I10 - Essential (primary) hypertension Discussion w patient/family: The assessment and plan as outlined above was discussed with the patient and/or family members who expressed understanding and agreement. All questions were answered. Thank you for involving us in the care of your patient. Please call with any questions. Subjective Principal diagnosis: Pre-syncope Interval history: Mr. Bettencourt was seen and evalutated at the bedside. He reports feeling fairly well today, and expresses that he is eager to go home. He denies any chest pain, shortness of breath, palpitations, dizziness, lightheadedness, or syncope. Per review of nursing notes, patient did report 9/10 "crushing" chest pain last night, which did resolve after some time. ECG obtained at that time was negative for acute changes concerning for ischemia. Patient had no other significant overnight events. Objective Vital Signs, Last 4 Hours Temp Pulse Resp BP Pulse Ox 08/26/18 10:06 93 08/26/18 08:05 98.2 F 105 20 163/89 93 08/26/18 07:41 20 98 08/26/18 07:07 99.2 F 110 19 156/90 94 General: Conversant, No Apparent Distress HEENT: Atraumatic, Normocephaly, Mucus Membranes Moist Neck: No JVD, Normal carotid pulses Cardiac: Reg Rate and Rhythm, Normal S1 and S2, No Murmur Lungs: Normal Breath Sounds, No Wheeze, Rales, Rhonchi Neuro: Alert and responsive, No focal deficits noted Abdomen: Soft, Non-Tender Skin: No rashes noted on visualized skin Musculoskeletal: No Chest Wall Tenderness Extremities: No Clubbing, No Cyanosis, No Edema, Normal Pulses Results 08/26/18 05:33 08/26/18 05:33 Lab Results 08/25/18 08/26/18 08/26/18 12:06 05:33 05:33 WBC 5.0 Hgb 9.5 L D Hct 31.3 L Plt Count 318 Sodium 137 Potassium 4.1 Chloride 101 Carbon Dioxide 24 BUN 21 H Creatinine 1.03 Glucose 229 H Calcium 8.9 Troponin I 0.03 - VTE Documentation of Mechanical Device: Intermittent pneumatic compression device Consult Discharge Plan - Plan Instructions: Syncope (DC), Diabetes Mellitus Type 2 in Adults (DC), Hypotension (DC), Hypotension (GEN) Referrals: Jv Finn DO [Primary Care Provider] - 08/30/18 9:40 am <Cale Rojas - Last Filed: 08/27/18 22:08> Date of Encounter: 08/27/18 Assessment and Plan Discussion w patient/family: The assessment and plan as outlined above was discussed with the patient and/or family members who expressed understanding and agreement. All questions were answered. Thank you for involving us in the care of your patient. Please call with any questions. Results 08/26/18 05:33 08/26/18 05:33 - Attending Attestation I have personally performed a face to face evaluation on this patient. I have reviewed and agree with the documented findings and care plan as documented by the resident. History and Exam by me shows: CRESCENCIO shows normal LVEF, however an ASD was discovered which may be amenable to transcutaneous closure. We will refer to interventional structural attending , as outpatient. Thanks, Cale Rojas MD [facility]
[2018-08-26] MEDS: Famotidine 20 MG TABLET PO SCH (11:10)
[2018-08-26 11:15] VITALS: BP 138/79
[2018-08-26] MEDS ORDERED: *HR* Amiodarone 200 MG TABLET PO SCH (13:15)
--- NOTE | 2018-08-26 13:34 | Electrocardiograph Report ---
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
--- NOTE | 2018-08-26 13:42 | Discharge Summary ---
- NOTES TO OUTPATIENT PROVIDER Notes to Outpatient Provider: follow up with cardiology. take log of your blood pressure and ines eit cardiology and PCP for further adjustment of your medications Orders not resulted at time of discharge: Pending orders 08/26/18 11:50 ECG event monitor 4 weeks [ECG] Routine Date of Encounter: 08/26/18 Time of Encounter: 13:38 - Discharge Diagnosis (1) Pre-syncope Priority: Primary Status: Acute (2) CAD (coronary artery disease) Priority: Secondary Status: Chronic Qualifiers: Coronary Disease-Associated Artery/Lesion type: tribe artery [place] vs. transplanted heart: tribe heart Associated angina: angina presence unspecified Qualified Code(s): I25.10 - Atherosclerotic heart disease of tribe coronary artery without angina pectoris (3) Type 2 diabetes mellitus Priority: Secondary Status: Chronic Qualifiers: Diabetes mellitus skilled nursing insulin use: without emt intermediate use Diabetes mellitus complication status: with hyperglycemia Qualified Code(s): E11.65 - Type 2 diabetes mellitus with hyperglycemia (4) Bradycardia Priority: Secondary Status: Acute (5) S/P CABG (coronary artery bypass graft) Priority: Secondary Status: Acute (6) Hypotension Priority: Secondary Status: Acute Qualifiers: Hypotension type: unspecified hypotension type Qualified Code(s): I95.9 - Hypotension, unspecified (7) DVT prophylaxis Priority: Secondary Status: Acute Hospital course: " Mr. Bettencourt is a 53 year old male with past medical history of coronary artery disease, and status post CABG from 3 weeks ago. He initially presented to the ER complaining of lightheadedness when standing and moving around. Patient states this is been going on for approximately one day. Denied any chest pain, shortness of breath, abdominal pain, nausea, vomiting, fever, numbness, tingling, or headaches. Reports he has been at his baseline shortness of breath , with no change in sputum production or sputum character. He reports his lower extremity edema remains grossly unchanged since discharge from this facility 2 weeks ago. Workup in the ED revealed sinus bradycardia with heart rate in the 40s. Chest x-ray showed pulmonary vascular congestion with small left pleural effusion. Initial troponin negative. BNP slightly elevated at 503. Magnesium was found to be slightly decreased at 1.5, but was repleted with 2 g IV. Patient was also given 1 L IV fluids. During the encounter with this provider patient reported he feels better after receiving the IV fluids and IV magnesium. Patient's and 2 daughters are bedside. Patient's does report the patient has had one more episode of lightheadedness since arriving to the floor, however this is resolved at this time. Patient continues to deny any chest pain or shortness of breath. The patient and his report compliance with home medications. Patient reports he has had adequate by mouth intake, with no difficulties urinating or difficulties with bowel movements. Patient reports he does wish to be a full code at this time, and is amenable to CVC placement should his hypotension persist. " Patient presented with above presentation and above ED course. He was started on IV fluids and AV jacobo blockers were held. Electrolytes were replaced. With resolution of his hypotension, bradycardia and dizziness. he had no neurological deficit ( no signs of posterior fossa stroke - rapid hand movements intact, gait steady, finger to nose intact, pronator drift negative, rhomberg negative) Cardiology was consulted and he underwent a CRESCENCIO full report below. For large atrial septal defect he was referred to Dr. Allison in the outpatient clinic for further discussion. His presyncope and dizziness was most likely secondary to hypotension from volume depletion and medication effects along with intermittent bradycardia. As per cardiology carvedilol was resumed at a lower dosage, Lasix was discontinued and amiodarone was continued. In addition her atrial fibrillation he was placed on a 4 week event monitor prior to hospital discharge to further evaluate his arrhythmia. As per cardiology it was recommend asa for CVA prevention with transient post-op afib. If recurrent afib consider full anticoagulation s per cardiology discretion. event monitoring was ordered by cardiology team for discharge. he did complain of bilateral elbow pain and Xrays showed No acute osseous abnormality in the right or left elbow. No significant osteoarthritis.Small bilateral triceps tendon insertion enthesophytes, left greater than right. he wished to be discharged. he had no neurological deficit or dizziness upon discharge. he understands that he will need to have the vent monitoring for 4 weeks. he is to come to the ED if he develops similar symptoms or if he has any neurological deficits ( facial droop, loss of sensation or functions of extremities, difficulty speaking) this was discussed with at bedside. he was counseled on fluids/ oral hydration, diet and nutrition CRESCENCIO: LVEF 60-65%. Normal right ventricle size with mild to moderate hypokinesis. Mild right atrial dilatation. Mild mitral regurgitation. Scattered grade 3 atheroma (3mm) in aortic arch and descending thoracic aorta. Borderline pulmonary vein stenosis, peak velocity 1.1 m/sec. Large atrial septal defect, likely secundum type with limited cushion rim vs primum type, left to right shunt at rest and bilateral shunt on saline study. Cardiology consult team notified. Discharge discussed with: patient, nurse, social work, case management, project management consultant - Time Spent with Patient Total time spent providing and/or coordinating discharge services: Time spent: Greater than 30 minutes (35) - Discharge Medications Prescriptions: Continued Amiodarone [Cordarone] 200 mg PO DAILY Aspirin [Lo-Dose Aspirin EC] 81 mg PO DAILY Atorvastatin Calcium 80 mg PO DAILY Carvedilol 3.125 mg PO BID Cetirizine HCl [24Hour Allergy] 10 mg PO DAILY Duloxetine HCl [Cymbalta] 60 mg PO DAILY Famotidine [Pepcid] 40 mg PO DAILY Pioglitazone HCl [Actos] 15 mg PO DAILY Insulin ASPART [NovoLOG] 0 unit SQ ACHS Insulin Glargine,Hum.rec.anlog [Basaglar Kwikpen U-100] 35 unit SQ HS Ipratropium/Albuterol Neb [Duoneb] 3 ml IH Q4HR Metformin HCl [Glucophage] 1,000 mg PO BID Discontinued Furosemide [Lasix] 10 mg PO DAILY Home Medications: Amiodarone [Cordarone] 200 mg PO DAILY 08/25/18 [History] Aspirin [Lo-Dose Aspirin EC] 81 mg PO DAILY 08/25/18 [History] Atorvastatin Calcium 80 mg PO DAILY 08/25/18 [History] Carvedilol 3.125 mg PO BID 08/25/18 [History] Cetirizine HCl [24Hour Allergy] 10 mg PO DAILY 08/25/18 [History] Duloxetine HCl [Cymbalta] 60 mg PO DAILY 08/25/18 [History] Famotidine [Pepcid] 40 mg PO DAILY 08/25/18 [History] Insulin ASPART [NovoLOG] 0 unit SQ ACHS 08/25/18 [History] Insulin Glargine,Hum.rec.anlog [Basaglar Kwikpen U-100] 35 unit SQ HS 08/25/18 [History] Ipratropium/Albuterol Neb [Duoneb] 3 ml IH Q4HR 08/25/18 [History] Metformin HCl [Glucophage] 1,000 mg PO BID 08/25/18 [History] Pioglitazone HCl [Actos] 15 mg PO DAILY 08/25/18 [History] Allergies/Adverse Reactions: Allergy/AdvReac Type Severity Reaction Status Date / Time No Known Allergies Allergy Verified 08/25/18 14:30 Date of admission: 08/25/18 00:52 Primary care physician: Jv Finn DO Consults: 08/25/18 03:59 Consult to Cardiology [CONS] Routine Comment: Consulting Provider: Cardiology Calvin Reason for Consult: Sinus bradycardia with hypotension. 3 weeks post op from CABG at this facility. Call Completed: No Consult to Cardiothoracic Surgery [CONS] Routine Consulting Provider: Cardiothoracic Surgery Karyn Reason for Consult: 3 weeks post op from CABG with Dr Simons. Sinus bradycardia and hypotension. Call Completed: No - Constitutional Vitals: Temp Pulse Resp BP Pulse Ox 97.6 F 104 18 138/79 94 08/26/18 11:07 08/26/18 11:07 08/26/18 11:07 08/26/18 11:07 08/26/18 11:07 General appearance: Present: A&O X 3, no acute distress Exam: NAD speaks in full sentences. Clear to auscultation bilaterally Clean CABG scar without signs of bleeding or infection, bradycardic, S1 and S2 No edema, moving all 4 extremities, bulk symmetric Alert and oriented 3 no focal deficit, gait is steady, rapid hand movements intact, finger to nose intact skin has multiple tattoos, dry and warm - Patient Status Disposition: Home Health Service Condition: Fair Functional capacity at discharge: independent ambulation Overall status at discharge: patient is back to baseline - Discharge Instructions Follow Up With: Jv Finn DO [Primary Care Provider] - 08/30/18 9:40 am Forms: ED Satisfaction Letter - Diet and Activity Activity: as per the cardiac rehab, increase activity as tolerated Diet: diabetic diet, low salt diet - VTE Documentation of Mechanical Device: Intermittent pneumatic compression device
--- NOTE | 2018-08-26 14:05 | Physician Discharge Referral ---
Home Health/Hosp Referral Info Transfer to: Home Health Provider in Charge Post Discharge: PCP - Diagnosis (1) Pre-syncope Priority: Primary Status: Acute (2) CAD (coronary artery disease) Status: Chronic (3) Type 2 diabetes mellitus Status: Chronic (4) Bradycardia Status: Acute (5) S/P CABG (coronary artery bypass graft) Status: Acute (6) Hypotension Status: Acute (7) DVT prophylaxis Status: Acute - Respiratory Orders Smoking Cessation: Smoking cessation has been advised. For more information, call the [employer] Quit Line at 9-262-KKWD-NOW. - Services Needed Following services are medically necessary services: Nursing - Transfer Medications Home Medications: Amiodarone [Cordarone] 200 mg PO DAILY 08/25/18 [History] Aspirin [Lo-Dose Aspirin EC] 81 mg PO DAILY 08/25/18 [History] Atorvastatin Calcium 80 mg PO DAILY 08/25/18 [History] Carvedilol 3.125 mg PO BID 08/25/18 [History] Cetirizine HCl [24Hour Allergy] 10 mg PO DAILY 08/25/18 [History] Duloxetine HCl [Cymbalta] 60 mg PO DAILY 08/25/18 [History] Famotidine [Pepcid] 40 mg PO DAILY 08/25/18 [History] Insulin ASPART [NovoLOG] 0 unit SQ ACHS 08/25/18 [History] Insulin Glargine,Hum.rec.anlog [Basaglar Kwikpen U-100] 35 unit SQ HS 08/25/18 [History] Ipratropium/Albuterol Neb [Duoneb] 3 ml IH Q4HR 08/25/18 [History] Metformin HCl [Glucophage] 1,000 mg PO BID 08/25/18 [History] Pioglitazone HCl [Actos] 15 mg PO DAILY 08/25/18 [History] Allergies/Adverse Reactions: Allergy/AdvReac Type Severity Reaction Status Date / Time No Known Allergies Allergy Verified 08/25/18 14:30 Certification: Further, I certify that my clinical findings support that this patient is homebound (i.e. absences from home require considerable and taxing effort and are for medical reasons or druze services or infrequently or short duration when for other reasons) because: Homebound Reason: Patient requires assistance of a person or device to safely leave home Attestation: My signature below is to certify that this patient is under my care and that I, or nurse practitioner, or a physician's legal support assistant working with me, has a [id number] encounter with this patient.
== END 2018-08-26 15:40 | disposition home health service (06) ==
LOC: EMEROOARM 23:12 → 2NNU 23:12
PROVIDERS: ADMIT Pediatrics; ATTEND Pediatrics

== ENCOUNTER 2019-01-07 21:11 | Observation (INO) ==
[2019-01-07] MEDS ORDERED: Ketorolac 15 MG/ML VIAL IVP ONE (21:22)
[2019-01-07 21:32] LABS: Basophils % 0.2 %; Eosinophils # 0.2 K/mcL (0.0-0.6); Hematocrit 35.6 % (37.5-50.1); Hemoglobin 10.8 g/dL (12.9-16.9); Immature Granulocytes % 0.2 % (0-4); Lymphocytes # 1.8 K/mcL (0.6-4.6); Lymphocytes % 41.1 %; Mean Corpuscular HGB Conc 30.3 g/dL (31.6-35.5); Mean Corpuscular Hemoglobin 24.9 pg (28.0-33.3); Mean Platelet Volume 9.9 fL (9.4-12.4); Monocytes # 0.4 K/mcL (0.0-1.3); Monocytes % 8.9 %; Platelet Count 217 K/mcL (140-400); Red Blood Count 4.34 M/mcL (4.19-5.50); Red Cell Distribution Width 15.9 % (11.5-14.5); Segmented Neutrophils % 45.6 %; White Blood Count 4.5 K/mcL (4.3-11.1)
[2019-01-07] MEDS ORDERED: Aspirin 81 MG TAB.CHEW PO ONE (21:39)
[2019-01-07 21:44] LABS: INR 1.2; Prothrombin Time 14.1 Seconds (9.4-12.1)
[2019-01-07 21:46] LABS: Activated Partial Thrombo Time 38.4 Seconds (26.0-36.0)
[2019-01-07 22:24] LABS: BUN/Creatinine Ratio 10 (6-26); Blood Urea Nitrogen 12 mg/dL (6-20); Calcium 9.3 mg/dL (8.6-10.3); Carbon Dioxide 28 mEq/L (23-29); Chloride 100 mEq/L (98-107); Glucose 189 mg/dL (70-105); Osmolality,Calculated 287 (280-300); Potassium 4.1 mEq/L (3.5-5.1); Sodium 136 mEq/L (136-145); eGFR For African Americans > 60 (> 60); eGFR For Non-African Americans 59 (> 60)
[2019-01-07 22:36] LABS: Troponin I 0.07 ng/mL (< 0.04)
[2019-01-07] MEDS ORDERED: *HR* Heparin 5,000 UNIT/ML VIAL IVP ONE (22:38)
[2019-01-07] MEDS ORDERED: *HR* Heparin 5,000 UNIT/ML VIAL IVP PRN ×2 (22:38)
[2019-01-07] MEDS ORDERED: Heparin 25,000 UNIT/250 ML D5W 25,000 UNIT/250 ML IV.SOLN IVC SCH ×2 (22:45)
[2019-01-07] MEDS ORDERED: Naloxone 0.4 MG/ML INJ IVP PRN (22:50)
[2019-01-08] MEDS ORDERED: Ipratropium/Albuterol Neb 3 ML IH PRN (00:50)
[2019-01-08] MEDS ORDERED: Dextrose Gel 15 GM/37.5 ML TUBE PO PRN ×2 (06:00)
[2019-01-08] MEDS ORDERED: Insulin LISPRO 300 UNITS/3 ML VIAL SQ SCH ×2 (06:00→11:30)
[2019-01-08] MEDS ORDERED: D5% in Water 1,000 ML IVC PRN (06:00)
[2019-01-08] MEDS ORDERED: *HR* Dextrose 50 % in Water (Syg) 50 ML SYRINGE IVP PRN (06:00)
[2019-01-08 06:36] LABS: Hematocrit 31.8 % (37.5-50.1); Hemoglobin 10.1 g/dL (12.9-16.9); Mean Corpuscular HGB Conc 31.8 g/dL (31.6-35.5); Mean Corpuscular Hemoglobin 25.1 pg (28.0-33.3); Mean Corpuscular Volume 78.9 fL (83.0-100.0); Mean Platelet Volume 10.3 fL (9.4-12.4); Platelet Count 193 K/mcL (140-400); Red Blood Count 4.03 M/mcL (4.19-5.50); Red Cell Distribution Width 16.2 % (11.5-14.5); White Blood Count 4.9 K/mcL (4.3-11.1)
[2019-01-08 06:59] LABS: BUN/Creatinine Ratio 11 (6-26); Blood Urea Nitrogen 15 mg/dL (6-20); Calcium 9.2 mg/dL (8.6-10.3); Carbon Dioxide 28 mEq/L (23-29); Chloride 100 mEq/L (98-107); Glucose 167 mg/dL (70-105); Osmolality,Calculated 287 (280-300); Potassium 4.6 mEq/L (3.5-5.1); Sodium 136 mEq/L (136-145); Troponin I 0.06 ng/mL (< 0.04); eGFR For African Americans > 60 (> 60); eGFR For Non-African Americans 52 (> 60)
[2019-01-08] MEDS ORDERED: Furosemide 20 MG TABLET PO SCH (09:00)
[2019-01-08] MEDS ORDERED: Aspirin 81 MG TAB.CHEW PO SCH (09:00)
[2019-01-08] MEDS ORDERED: (Suboxone 8 Mg-2 Mg SL) SL SCH (09:00)
[2019-01-08] MEDS ORDERED: Perflutren Lipid Microsphere 1.3 ML in 0.9 % Sodium Chloride 8.7 ML IVP ONE (09:54)
[2019-01-08] MEDS ORDERED: Perflutren Lipid Microsphere 2 ML VIAL ONE (10:04)
[2019-01-08 11:08] VITALS: BP 117/66
[2019-01-08] MEDS ORDERED: *HR* Heparin 5,000 UNIT/ML VIAL SQ SCH (18:00)
== END 2019-01-08 14:42 | disposition home or self-care (01) ==
LOC: EMEROOARM 21:11 → 2NENU 21:11 → SUATTDRO 22:58 → 2NENU 23:15
PROVIDERS: ADMIT Internal Medicine; ATTEND Internal Medicine

== ENCOUNTER 2021-12-07 21:20 | Observation (INO) ==
[2021-12-07] MEDS ORDERED: Nitroglycerin 0.4 MG TAB.SUBL SL PRN (21:53)
[2021-12-07 22:01] LABS: Basophils % 0.3 %; Eosinophils # 0.1 K/mcL (0.0-0.6); Eosinophils % 1.4 %; Hematocrit 31.2 % (37.5-50.1); Hemoglobin 9.9 g/dL (12.9-16.9); Immature Granulocytes % 0.6 % (0-4); Lymphocytes # 1.8 K/mcL (0.6-4.6); Lymphocytes % 25.5 %; Mean Corpuscular HGB Conc 31.7 g/dL (31.6-35.5); Mean Corpuscular Volume 85.2 fL (83.0-100.0); Mean Platelet Volume 9.7 fL (9.4-12.4); Monocytes # 0.9 K/mcL (0.0-1.3); Monocytes % 12.3 %; Neutrophils # 4.2 K/mcL (1.6-8.9); Platelet Count 273 K/mcL (140-400); Red Blood Count 3.66 M/mcL (4.19-5.50); Red Cell Distribution Width 12.6 % (11.5-14.5); Segmented Neutrophils % 59.9 %
[2021-12-07 22:25] LABS: Influenza A PCR Negative (Negative); Influenza B PCR Negative (Negative); Resp. Syncytial Virus PCR Negative (Negative)
[2021-12-07 22:26] LABS: SARS-CoV-2 by PCR (In House) Negative (Negative)
[2021-12-07 22:27] LABS: BUN/Creatinine Ratio 14 (6-26); Blood Urea Nitrogen 21 mg/dL (6-20); Calcium 8.3 mg/dL (8.6-10.3); Carbon Dioxide 23 mEq/L (23-29); Chloride 101 mEq/L (98-107); Glucose 167 mg/dL (70-105); Osmolality,Calculated 279 (280-300); Potassium 4.5 mEq/L (3.5-5.1); Sodium 131 mEq/L (136-145); Troponin I < 0.03 ng/mL (< 0.04)
[2021-12-07] MEDS ORDERED: Aspirin 81 MG TAB.CHEW PO ONE (22:34)
[2021-12-07] MEDS ORDERED: 0.9 % Sodium Chloride 1,000 ML IVC ONE (22:38)
[2021-12-08] MEDS ORDERED: Morphine Sulfate 2 MG/ML SYRINGE IVP PRN (00:30)
[2021-12-08] MEDS ORDERED: Ondansetron 4 MG/2 ML VIAL IVP PRN (00:38)
[2021-12-08] MEDS ORDERED: Naloxone 0.4 MG/ML INJ IVP PRN (00:38)
[2021-12-08] MEDS ORDERED: *HR* Dextrose 50 % in Water (Syg) 50 ML SYRINGE IVP PRN (00:40)
[2021-12-08] MEDS ORDERED: D5% in Water 1,000 ML IVC PRN (00:40)
[2021-12-08] MEDS ORDERED: Dextrose Gel 15 GM/37.5 ML TUBE PO PRN ×2 (00:40)
[2021-12-08] MEDS ORDERED: Ipratropium/Albuterol Neb 3 ML IH PRN (00:59)
[2021-12-08] MEDS ORDERED: Calcium Gluconate 1gm/50mL 1 GM/50 ML BAG IVPB ONE (02:04)
[2021-12-08] MEDS: Insulin LISPRO 300 UNITS/3 ML VIAL SUBQ SCH ×2 (05:31→12:03)
[2021-12-08 05:49] LABS: Hematocrit 28.8 % (37.5-50.1); Hemoglobin 9.2 g/dL (12.9-16.9); Mean Corpuscular HGB Conc 31.9 g/dL (31.6-35.5); Mean Corpuscular Hemoglobin 26.9 pg (28.0-33.3); Mean Corpuscular Volume 84.2 fL (83.0-100.0); Mean Platelet Volume 9.6 fL (9.4-12.4); Platelet Count 232 K/mcL (140-400); Red Blood Count 3.42 M/mcL (4.19-5.50); Red Cell Distribution Width 12.6 % (11.5-14.5); White Blood Count 6.2 K/mcL (4.3-11.1)
[2021-12-08 05:56] LABS: INR 1.4; Prothrombin Time 15.4 Seconds (9.4-12.1)
[2021-12-08 05:58] LABS: Activated Partial Thrombo Time 35.7 Seconds (26.0-36.0)
[2021-12-08 06:07] LABS: Estimated Average Glucose 169 mg/dl; Hemoglobin A1C 7.5 %
[2021-12-08 06:40] LABS: Folate 12.1 ng/mL (3.0-16.0); Vitamin B12 388 pg/mL (250-1100)
[2021-12-08] MEDS ORDERED: Regadenoson 0.4 MG/5 ML SYRINGE IVP ONE (06:41)
[2021-12-08 07:09] LABS: Calcium 8.4 mg/dL (8.6-10.3); Chol/HDL Ratio 2.9 (0-4.9); Magnesium 1.2 mg/dL (1.6-2.6); Potassium 4.2 mEq/L (3.5-5.1); Thyroid Stimulating Hormone 1.345 mcIU/mL (0.340-5.600)
[2021-12-08] MEDS ORDERED: carvediloL 6.25 MG TABLET PO SCH (08:00)
[2021-12-08] MEDS ORDERED: Loratadine 10 MG TABLET PO SCH (09:00)
[2021-12-08] MEDS ORDERED: amLODIPine 5 MG TABLET PO SCH (09:00)
[2021-12-08] MEDS ORDERED: Famotidine 20 MG TABLET PO SCH (09:00)
[2021-12-08] MEDS ORDERED: Aspirin Enteric Coated 81 MG Tablet PO SCH (09:00)
[2021-12-08] MEDS ORDERED: *HR* Buprenorphine HCl 8 MG TAB.SUBL SL SCH (09:00)
[2021-12-08] MEDS ORDERED: Furosemide 20 MG TABLET PO SCH (09:00)
[2021-12-08] MEDS ORDERED: Fluticasone Propionate Nasal 50 MCG/SPRAY BOTTLE NS SCH (09:00)
[2021-12-08] MEDS ORDERED: Apixaban 5 MG TABLET PO SCH (09:00)
[2021-12-08 15:57] VITALS: BP 165/82; PULSE 74; TEMP 97.9; O2SAT 93
[2021-12-09 22:12] LABS: Hepatitis B Surface Antigen Nonreactive (Nonreactive)
[2021-12-09 22:44] LABS: Hepatitis A Antibody IgM Nonreactive (Nonreactive)
[2021-12-09 22:45] LABS: Hepatitis B Core IgM Nonreactive (Nonreactive)
[2021-12-10 02:56] LABS: Hepatitis C Virus Antibody Reactive (Nonreactive)
== END 2021-12-08 16:38 | disposition home or self-care (01) ==
LOC: EMEROOARM 21:20 → 3BNU 21:20 → SUATTDRO 23:06 → 3BNU 23:44
PROVIDERS: ADMIT Internal Medicine; ATTEND Registered Nurse